=== PATIENT | female | born 1985 | race African-American/Black ===

== ENCOUNTER 2024-07-14 11:13 | Outpatient (REF) | payer OTHER, SELFPAY ==
--- OUTSIDE RECORDS SUMMARY | 2024-07-14 12:56 | XMS_ITS | Clinical Summary ---
Author Organization [facility] Facility Address [address] [place] [id number] Care Team Providers Care Adjunct Faculty Name Role Phone Unavailable Primary Care Provider Unavailabl e Social History Tobacco Use Types Packs/Day Years Used Date Smoking Tobacco: Never Assessed Comments Unknown Sex and Gender Information Value Date Recorded Sex Assigned at Not on file Legal Sex Female 8:33 AM EDT Gender Identity Not on file Sexual Orientation Not on file Plan of Treatment Health Maintenance Due Date Last Done Comments Hepatitis B Vaccine (1 of 3 - 19+ 3-dose series) 09/18/2003 Influenza Vaccine (#1) 2024 Pneumococcal Vaccine: Pediat rics (0 to 5 Years) and At-Risk Patients (6 to 64 Years) Aged Out No longer eligi ble based on patient's age to complete this topic Insurance [facility] [employer]ICA[employer]
== END 2024-07-14 11:14 | disposition home or self-care (01) ==
LOC: HO.HOSX 11:13
DX: Z13.89 Encounter for screening for other disorder (principal)

== ENCOUNTER 2024-09-04 08:25 | Outpatient (REF) | payer OTHER, SELFPAY ==
--- NOTE | ~2024-09-04 | XR_ITS ---
EXAMINATION: XR HAND 3 OR MORE VIEWS LEFT HISTORY: M79.642 - Pain in left hand COMPARISON: There are no prior studies available for comparison. FINDINGS: Three views of the left hand are submitted. Osseous mineralization is normal. There is no fracture or dislocation. The joint spaces are preserved. The soft tissues are unremarkable. XR/XR hand LT min 3V IMPRESSION: Unremarkable examination of the left hand. Electronically signed by: Chuck Lugo MD 09/04/2024 01:26 PM EDT
--- OUTSIDE RECORDS SUMMARY | 2024-09-04 08:38 | XMS_ITS | Clinical Summary ---
Author Organization [facility] Facility Address [address] [place] [id number] Care Team Providers Care Insurance Job Titles Name Role Phone Unavailable Primary Care Provider [...]
== END 2024-09-04 08:26 | disposition home or self-care (01) ==
LOC: HO.HOSX 08:25
DX: M79.642 Pain in left hand (principal); M77.8 Other enthesopathies, not elsewhere classified; R20.0 Anesthesia of skin; R20.2 Paresthesia of skin; Z87.828 Personal history of other (healed) physical injury and trauma
CPT/HCPCS: 73130; 99202

== ENCOUNTER 2024-09-04 11:27 | Outpatient (AMB) | payer OTHER, SELFPAY ==
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
--- OUTSIDE RECORDS SUMMARY | 2024-09-04 13:16 | XMS_ITS | Clinical Summary ---
Author Organization [facility] Facility Address [address] [place] [id number] Care Team Providers Care Answering Service Operator Name Role Phone Unavailable Primary Care Provider [...]
== END 2024-09-04 11:56 | disposition home or self-care (01) ==
LOC: HO.HOS 11:28
PROVIDERS: PCP Nurse Practitioner Family
DX: M77.8 Other enthesopathies, not elsewhere classified (principal); R20.0 Anesthesia of skin; R20.2 Paresthesia of skin; Z04.3 Encounter for examination and observation following other accident
CPT/HCPCS: 99203

== ENCOUNTER → 2024-09-04 11:35 | Outpatient (BNV) | payer OTHER, SELFPAY | PROVIDERS: Visit Provider Radiology Diagnostic Radiology | DX: M79.642 Pain in left hand (principal) | CPT/HCPCS: 73130 ==